=== PATIENT | female | born 1970 | race Two or more races ===

== ENCOUNTER 2019-02-28 13:53 | Emergency (ER) | payer MEDICAID ==
[~2019-02-28] VITALS: Ht 160 cm; Wt 99.6 kg
[2019-02-28 15:29] VITALS: BP 145/99
== END 2019-02-28 18:25 | disposition left against medical advice (07) ==
LOC: ED 18:19
DX: R07.9 Chest pain, unspecified (principal); Z86.79 Personal history of other diseases of the circulatory system
CPT/HCPCS: 36415; 71045; 80053; 83690; 84484; 85025; 93005; 99284

== ENCOUNTER → 2020-05-28 | Day surgery (SDC) | payer MEDICAID, OTHER ==
[~2020-05-28] VITALS: Ht 160 cm; Wt 88.4 kg
[~2020-05-28] MED LIST: ACETAMINOPHEN 325 MG TABLET PO PRN; BUPIVACAINE/PF 0.5% ONE; CEFAZOLIN 1,000 MG ONE; CEFOTETAN PMX 1GM/50ML 50 ML IVPB ONE; CHLORHEXIDINE 15 ML UDC MM ONE; CHLORHEXIDINE 15 ML UDC ONE; D5%-0.45% NACL 1,000 ML IV ONE; DEXAMETHASONE 4 MG/ML, 1ML ONE; DIAZEPAM 5 MG/ML, 2ML IVPush PRN; DIPHENHYDRAMINE 50 MG/ML, 1ML IVPush PRN; FENTANYL PF 100 MCG/2ML ONE; FENTANYL PF 250 MCG/5ML ONE; HYDROmorphone 1 MG/ML, 1ML INJ IVPush PRN; LABETALOL 5MG/ML, 20ML IV PRN; LOSARTAN; MEPERIDINE/PF 25MG/0.5ML IVPush PRN; MIDAZOLAM 1 MG/ML, 2ML ONE; MORPHINE SULFATE 4 MG/ML, 1ML IVPush PRN; MORPHINE SULFATE 4 MG/ML, 1ML ONE; ONDANSETRON 2MG/ML, 2ML IVPush ONE; ONDANSETRON 2MG/ML, 2ML IVPush PRN; ONDANSETRON 2MG/ML, 2ML ONE; OXYC-302 PO; OXYcodone 5 MG/5 ML ORAL.SOL UDC ONE; OXYcodone 5 MG/5 ML ORAL.SOL UDC PO PRN; PROMETHAZINE 25 MG/ML, 1ML IVPush PRN; ROCURONIUM 10 MG/ML,10ML ONE; SODIUM CHLORIDE 0.9% 1,000ML IVBOLUS ONE; SODIUM CHLORIDE FLUSH 10ML SYR IVF PRN; SUGAMMADEX 200 MG/2 ML IVPush ONE; hydrALAzine 20 MG/ML, 1ML IV PRN
--- NOTE | 2020-05-28 08:19 | NUR ---
WIRE WHEELER: PT TO ROOM FROM LOBBY
[2020-05-28] MEDS: MORPHINE SULFATE 4 MG/ML, 1ML IVPush PRN ×2 (09:00→10:02)
--- NOTE | 2020-05-28 09:02 | NUR ---
PIV STARTED, PT MEDICATED PER EMAR. US IN ROOM.
[2020-05-28 09:12] LABS: BASOPHILS % (AUTO) 0 % (0-1); EOSINOPHILS % (AUTO) 6 % (1-7); LYMPHOCYTES % (AUTO) 16 % (22-44); MEAN CORPUSCULAR HEMOGLOBIN 31.4 pg (27.0-34.8); MEAN CORPUSCULAR HGB CONC 33.1 g/dL (32.4-35.8); MEAN PLATELET VOLUME 7.3 fL (7.4-10.4); MONOCYTES % (AUTO) 7 % (2-9); NEUTROPHILS % (AUTO) 72 % (42-75); PLATELET COUNT 474 x10^3/uL (130-400); RED BLOOD COUNT 4.46 x10^6/uL (3.82-5.3); RED CELL DISTRIBUTION WIDTH 13.4 % (9.6-15.2)
[2020-05-28 09:15] LABS: CHLORIDE 110 mmol/L (98-107)
[2020-05-28 09:18] LABS: ALBUMIN 3.6 g/dL (3.4-5.0); ANION GAP 9 mmol/L (5-15); CALCIUM 9.8 mg/dL (8.5-10.1)
[2020-05-28 09:25] LABS: ALANINE AMINOTRANSFERASE 17 U/L (12-78); ALKALINE PHOSPHATASE 147 U/L (45-117); BILIRUBIN,TOTAL 0.6 mg/dL (0.2-1.0); CREATININE 1.03 mg/dL (0.55-1.02); TOTAL PROTEIN 7.9 g/dL (6.4-8.2)
[2020-05-28 09:54] LABS: MD SCAN
--- NOTE | 2020-05-28 09:56 | NUR ---
MED GAVIN FROM PHARMACY.
--- NOTE | 2020-05-28 10:43 | NUR ---
PT RESTING ON GURNEY W/ CALL LIGHT IN REACH AND SIDE RAILS UPX2. VSS, NADN. AWAITING ADMIT.
--- NOTE | 2020-05-28 11:20 | NUR ---
ATTEMPT TO CALL REPORT, RN UNAVAILABLE, WILL CALL BACK.
--- NOTE | 2020-05-28 11:38 | NUR ---
REPORT GIVEN TO MAMADOU JACOBO. PT IS READY FOR TRANSPORT AT THIS TIME. IVF INFUSING APPROPRIATELY. RESP EVEN AND UNLABORED, STEFANIA.
[2020-05-28 13:15] VITALS: BP 124/78
[2020-05-28 14:50] LABS: MICROSCOPIC INDICATED
[2020-05-28] MEDS: FENTANYL PF 100 MCG/2ML IV PRN ×4 (16:45→18:32)
[2020-05-28 20:46] VITALS: BP 119/79
[2020-05-28] MEDS: HYDROcodone/APAP 5/325 TABLET PO PRN (23:50)
[2020-05-28 23:56] VITALS: BP 116/79
[2020-05-29 03:49] VITALS: BP 124/73
[2020-05-29] MEDS: HYDROcodone/APAP 5/325 TABLET PO PRN (08:02)
[2020-05-29 08:09] VITALS: BP 118/77
[2020-05-29 09:45] VITALS: BP 124/85
== END | disposition home or self-care (01) ==
LOC: ED 08:38 → 4NE 11:49 → EDSTATUS 14:21 → ED 14:33 → 4NE 14:33 → UNDOADMIN 14:33 → OR 16:00 → 4NE 05-29 10:52 → DCLOUNGE 05-29 10:52 → UNDODISIN 05-29 11:05 → DCLOUNGE 06-01 14:20
PROVIDERS: ATTEND Emergency Medicine
DX: K80.12 Calculus of gallbladder with acute and chronic cholecystitis without obstruction (principal); E66.01 Morbid (severe) obesity due to excess calories; I10 Essential (primary) hypertension; E78.5 Hyperlipidemia, unspecified; F17.210 Nicotine dependence, cigarettes, uncomplicated; Z68.30 Body mass index [BMI] 30.0-30.9, adult; Z79.899 Other long term (current) drug therapy
CPT/HCPCS: 36415; 47562; 76700; 80053; 81001; 83690; 84703; 85025; 87086; 87635; 88304; 93005; 96361; 96365; 96375; 96376; 99285; J0690; J1100; J2250; J2270; J2405; J3010; J7030; G0378